=== PATIENT | male | born 1960 | race Caucasian/White ===

== ENCOUNTER 2022-10-23 10:54 | Inpatient (IN) | payer BC ==
[2022-10-23 11:04] VITALS: BMI 22.9
[2022-10-23] MEDS ORDERED: ACETAMINOPHEN 325 MG TABLET (FP) PO ONE (12:46)
[2022-10-23] MEDS ORDERED: ACETAMINOPHEN 325 MG TABLET (FP) ONE (12:51)
[2022-10-23 13:27] LABS: HEMATOCRIT 40.2 % (35.4-49); HEMOGLOBIN 14.3 GM/dL (11.7-16.9); LYMPH % 20.9 % (8-40); MCH 30.1 pg (25.7-33.7); MCHC 35.7 g/dl (32.0-35.9); MEAN CELL VOLUME 84.3 fl (80-96); MEAN PLT VOLUME 7.9 fl (7.5-11.1); MONO % 5.6 % (3.8-10.2); NEUT % 70.5 % (42.8-82.8); PLATELET COUNT 463 10^3/uL (134-434); RBC 4.77 M/mm3 (4.00-5.60); RDW 12.3 % (11.9-15.9); WHITE BLOOD COUNT 7.5 K/mm3 (4.0-10.0)
[2022-10-23 13:45] LABS: POTASSIUM 4.2 mmol/L (3.5-5.1)
[2022-10-23 13:46] LABS: BLOOD UREA NITROGEN 17.4 mg/dL (7-18); CALCIUM 9.3 mg/dL (8.5-10.1)
[2022-10-23 13:47] LABS: ALBUMIN 3.3 g/dl (3.4-5.0)
[2022-10-23 13:50] LABS: CREATININE 0.9 mg/dL (0.55-1.3)
[2022-10-23 13:51] LABS: TOT PROT 6.9 g/dl (6.4-8.2)
[2022-10-23 13:52] LABS: BILIRUBIN,TOTAL 0.7 mg/dL (0.2-1)
[2022-10-23] MEDS ORDERED: ASPIRIN 81 MG CHEWABLE TABLETS PO ONE (14:01)
[2022-10-23] MEDS ORDERED: ASPIRIN 81 MG CHEWABLE TABLETS ONE (14:10)
[2022-10-23] MEDS ORDERED: CEFTRIAXONE 1 GM in DEXTROSE 5%-WATER - 50 ML IVPB ONE (17:33)
[2022-10-23] MEDS ORDERED: AZITHROMYCIN IVPB 500 MG in DEXTROSE 5%-WATER - 250 ML IVPB ONE (17:33)
[2022-10-23] MEDS ORDERED: CEFTRIAXONE 1 GM/50 ML BAG ONE (18:44)
[2022-10-23] MEDS ORDERED: AZITHROMYCIN IVPB 500 MG/250 ML BAG IVPB ONE (18:44)
[2022-10-23 18:47] LABS: N-TERMINAL BNP 3085.4 pg/ml (5-125)
[2022-10-23] MEDS ORDERED: ENOXAPARIN NA (PORCINE) 60 MG/0.6 ML DISP.SYRIN SQ ONE (19:34)
[2022-10-23] MEDS: ENOXAPARIN NA (PORCINE) 60 MG/0.6 ML DISP.SYRIN SQ SCH (19:37)
[2022-10-23] MEDS: DOXYCYCLINE INJECTION 100 MG in DEXTROSE 5%-WATER 100 ML IVPB SCH (21:58)
[2022-10-23] MEDS ORDERED: HEPARIN NA (PORCINE) 5,000 UNITS/ML 1ML VIAL SQ SCH (22:00)
[2022-10-24] MEDS: ENOXAPARIN NA (PORCINE) 60 MG/0.6 ML DISP.SYRIN SQ SCH ×2 (06:24→06:27)
[2022-10-24] MEDS: INSULIN SLIDING SCALE (NOVOLOG) 1 VIAL SQ SCH ×4 (06:24→16:36)
[2022-10-24 08:02] LABS: EOS % 2.2 % (0-4.5); HEMATOCRIT 35.4 % (35.4-49); HEMOGLOBIN 12.6 GM/dL (11.7-16.9); LYMPH % 21.5 % (8-40); MCH 29.8 pg (25.7-33.7); MCHC 35.6 g/dl (32.0-35.9); MEAN CELL VOLUME 83.6 fl (80-96); MEAN PLT VOLUME 8.1 fl (7.5-11.1); NEUT % 69.3 % (42.8-82.8); PLATELET COUNT 392 10^3/uL (134-434); RBC 4.24 M/mm3 (4.00-5.60); RDW 12.4 % (11.9-15.9); WHITE BLOOD COUNT 6.2 K/mm3 (4.0-10.0)
[2022-10-24 08:23] LABS: POTASSIUM 3.6 mmol/L (3.5-5.1)
[2022-10-24 08:24] LABS: CALCIUM 8.3 mg/dL (8.5-10.1)
[2022-10-24 08:25] LABS: BLOOD UREA NITROGEN 15.4 mg/dL (7-18)
[2022-10-24 08:28] LABS: CREATININE 0.8 mg/dL (0.55-1.3)
[2022-10-24] MEDS ORDERED: CEFTRIAXONE 1 GM in DEXTROSE 5%-WATER - 50 ML IVPB SCH (10:00)
[2022-10-24] MEDS: DOXYCYCLINE INJECTION 100 MG in DEXTROSE 5%-WATER 100 ML IVPB SCH (10:06)
[2022-10-24] MEDS: ASPIRIN COATED 81 MG TABLET.EC PO SCH (10:06)
[2022-10-24] MEDS: ENOXAPARIN NA (PORCINE) 80 MG/0.8 ML DISP.SYRIN SQ SCH ×2 (14:51→23:17)
[2022-10-24] MEDS: CLOPIDOGREL BISULFATE 75 MG TABLET (FP) PO SCH (14:51)
[2022-10-24] MEDS ORDERED: VANCOMYCIN/WATER 1250 MG 1,250 MG/250 ML BAG IVPB SCH (15:00)
[2022-10-24] MEDS: PIPERACILLIN/TAZOB 3.375 GM 3.375 GM in DEXTROSE 5%-WATER - 50 ML IVPB SCH (17:38)
[2022-10-24] MEDS ORDERED: PIPERACILLIN/TAZOBACTAM 3.375 GM VIAL IVPB ONE (17:39)
[2022-10-24] MEDS ORDERED: ACETAMINOPHEN 325 MG TABLET (FP) PO ONE (20:39)
[2022-10-24] MEDS: ATORVASTATIN CA 80 MG TABLET (FP) PO SCH (21:06)
[2022-10-24] MEDS ORDERED: ATORVASTATIN CA 40 MG TABLET (FP) PO SCH (22:00)
[2022-10-25] MEDS: PIPERACILLIN/TAZOB 3.375 GM 3.375 GM in DEXTROSE 5%-WATER - 50 ML IVPB SCH ×3 (01:43→17:10)
[2022-10-25] MEDS: INSULIN SLIDING SCALE (NOVOLOG) 1 VIAL SQ SCH ×3 (06:35→16:58)
[2022-10-25 07:29] LABS: BASO % 1.1 % (0-2.0); EOS % 2.2 % (0-4.5); HEMATOCRIT 35.3 % (35.4-49); HEMOGLOBIN 12.6 GM/dL (11.7-16.9); LYMPH % 18.6 % (8-40); MCH 29.6 pg (25.7-33.7); MCHC 35.7 g/dl (32.0-35.9); MEAN CELL VOLUME 82.9 fl (80-96); MEAN PLT VOLUME 7.8 fl (7.5-11.1); MONO % 5.9 % (3.8-10.2); NEUT % 72.2 % (42.8-82.8); PLATELET COUNT 394 10^3/uL (134-434); RBC 4.26 M/mm3 (4.00-5.60); RDW 12.6 % (11.9-15.9); WHITE BLOOD COUNT 6.4 K/mm3 (4.0-10.0)
[2022-10-25 07:41] LABS: POTASSIUM 3.8 mmol/L (3.5-5.1)
[2022-10-25 07:47] LABS: ALBUMIN 2.6 g/dl (3.4-5.0)
[2022-10-25 07:48] LABS: BLOOD UREA NITROGEN 13.4 mg/dL (7-18); CALCIUM 8.5 mg/dL (8.5-10.1); MAGNESIUM 1.9 mg/dL (1.8-2.4)
[2022-10-25 07:51] LABS: BILIRUBIN,TOTAL 0.7 mg/dL (0.2-1); CREATININE 0.8 mg/dL (0.55-1.3); PHOSPHOROUS 3.2 mg/dL (2.5-4.9)
[2022-10-25 07:52] LABS: TOT PROT 5.7 g/dl (6.4-8.2)
[2022-10-25] MEDS: ASPIRIN COATED 81 MG TABLET.EC PO SCH (09:46)
[2022-10-25] MEDS: CLOPIDOGREL BISULFATE 75 MG TABLET (FP) PO SCH (09:46)
[2022-10-25] MEDS: ENOXAPARIN NA (PORCINE) 80 MG/0.8 ML DISP.SYRIN SQ SCH ×2 (09:47→22:15)
[2022-10-25] MEDS: LISINOPRIL 5 MG TABLET PO SCH (14:53)
[2022-10-25] MEDS: ATORVASTATIN CA 80 MG TABLET (FP) PO SCH (22:15)
[2022-10-26] MEDS: PIPERACILLIN/TAZOB 3.375 GM 3.375 GM in DEXTROSE 5%-WATER - 50 ML IVPB SCH ×3 (01:22→17:05)
[2022-10-26] MEDS: INSULIN SLIDING SCALE (NOVOLOG) 1 VIAL SQ SCH ×3 (06:20→17:04)
[2022-10-26 06:54] LABS: BASO % 1.1 % (0-2.0); EOS % 1.6 % (0-4.5); HEMATOCRIT 34.1 % (35.4-49); HEMOGLOBIN 12.4 GM/dL (11.7-16.9); LYMPH % 19.4 % (8-40); MCH 30.1 pg (25.7-33.7); MCHC 36.4 g/dl (32.0-35.9); MEAN CELL VOLUME 82.9 fl (80-96); MEAN PLT VOLUME 7.4 fl (7.5-11.1); MONO % 5.1 % (3.8-10.2); NEUT % 72.8 % (42.8-82.8); PLATELET COUNT 402 10^3/uL (134-434); RBC 4.11 M/mm3 (4.00-5.60); RDW 12.3 % (11.9-15.9); WHITE BLOOD COUNT 7.6 K/mm3 (4.0-10.0)
[2022-10-26 07:11] LABS: BLOOD UREA NITROGEN 11.2 mg/dL (7-18); CALCIUM 8.4 mg/dL (8.5-10.1)
[2022-10-26 07:12] LABS: ALBUMIN 2.8 g/dl (3.4-5.0); MAGNESIUM 2.1 mg/dL (1.8-2.4)
[2022-10-26 07:14] LABS: CREATININE 0.9 mg/dL (0.55-1.3); PHOSPHOROUS 3.6 mg/dL (2.5-4.9)
[2022-10-26 07:16] LABS: BILIRUBIN,TOTAL 0.7 mg/dL (0.2-1); TOT PROT 5.8 g/dl (6.4-8.2)
[2022-10-26] MEDS: CLOPIDOGREL BISULFATE 75 MG TABLET (FP) PO SCH (09:33)
[2022-10-26] MEDS: LISINOPRIL 5 MG TABLET PO SCH (09:33)
[2022-10-26] MEDS: ASPIRIN COATED 81 MG TABLET.EC PO SCH (09:33)
[2022-10-26] MEDS: ENOXAPARIN NA (PORCINE) 80 MG/0.8 ML DISP.SYRIN SQ SCH (09:34)
[2022-10-26] MEDS ORDERED: INSULIN (NOVOLOG) ASPART 100 UNITS/ML 10ML VIAL ONE (16:57)
[2022-10-26] MEDS: ATORVASTATIN CA 80 MG TABLET (FP) PO SCH (21:44)
[2022-10-27] MEDS: PIPERACILLIN/TAZOB 3.375 GM 3.375 GM in DEXTROSE 5%-WATER - 50 ML IVPB SCH ×3 (03:27→17:50)
[2022-10-27] MEDS: INSULIN SLIDING SCALE (NOVOLOG) 1 VIAL SQ SCH ×3 (06:26→16:34)
[2022-10-27 07:34] LABS: BASO % 1.3 % (0-2.0); EOS % 2.1 % (0-4.5); HEMATOCRIT 32.5 % (35.4-49); HEMOGLOBIN 11.8 GM/dL (11.7-16.9); LYMPH % 20.7 % (8-40); MCHC 36.3 g/dl (32.0-35.9); MEAN CELL VOLUME 82.5 fl (80-96); MEAN PLT VOLUME 7.8 fl (7.5-11.1); NEUT % 68.9 % (42.8-82.8); PLATELET COUNT 363 10^3/uL (134-434); RBC 3.94 M/mm3 (4.00-5.60); RDW 12.4 % (11.9-15.9); WHITE BLOOD COUNT 6.8 K/mm3 (4.0-10.0)
[2022-10-27 08:01] LABS: POTASSIUM 3.7 mmol/L (3.5-5.1)
[2022-10-27 08:06] LABS: ALBUMIN 2.6 g/dl (3.4-5.0); BLOOD UREA NITROGEN 10.8 mg/dL (7-18); CALCIUM 8.3 mg/dL (8.5-10.1); MAGNESIUM 1.9 mg/dL (1.8-2.4)
[2022-10-27 08:09] LABS: PHOSPHOROUS 3.4 mg/dL (2.5-4.9)
[2022-10-27 08:10] LABS: CREATININE 0.8 mg/dL (0.55-1.3)
[2022-10-27 08:11] LABS: BILIRUBIN,TOTAL 0.8 mg/dL (0.2-1); TOT PROT 5.6 g/dl (6.4-8.2)
[2022-10-27] MEDS: ASPIRIN COATED 81 MG TABLET.EC PO SCH (09:22)
[2022-10-27] MEDS: CLOPIDOGREL BISULFATE 75 MG TABLET (FP) PO SCH (09:22)
[2022-10-27] MEDS: LISINOPRIL 5 MG TABLET PO SCH (09:22)
[2022-10-27] MEDS: ENOXAPARIN NA (PORCINE) 80 MG/0.8 ML DISP.SYRIN SQ SCH ×2 (09:24→21:21)
[2022-10-27] MEDS: ATORVASTATIN CA 80 MG TABLET (FP) PO SCH (21:21)
[2022-10-28] MEDS: PIPERACILLIN/TAZOB 3.375 GM 3.375 GM in DEXTROSE 5%-WATER - 50 ML IVPB SCH ×2 (02:44→09:10)
[2022-10-28] MEDS: INSULIN SLIDING SCALE (NOVOLOG) 1 VIAL SQ SCH ×2 (05:59→11:46)
[2022-10-28] MEDS: CLOPIDOGREL BISULFATE 75 MG TABLET (FP) PO SCH (09:08)
[2022-10-28] MEDS: LISINOPRIL 5 MG TABLET PO SCH (09:08)
[2022-10-28] MEDS: ASPIRIN COATED 81 MG TABLET.EC PO SCH (09:08)
[2022-10-28] MEDS: ENOXAPARIN NA (PORCINE) 80 MG/0.8 ML DISP.SYRIN SQ SCH (09:09)
[2022-10-28 09:14] VITALS: RESP 20
[2022-10-28] MEDS ORDERED: LISINOPRIL 10 MG TABLET PO SCH (11:39)
[2022-10-28] MEDS ORDERED: LISINOPRIL 5 MG TABLET PO ONE (11:39)
[2022-10-28] MEDS ORDERED: INSULIN (NOVOLOG) ASPART 100 UNITS/ML 10ML VIAL ONE (11:45)
[2022-10-28 14:09] VITALS: BP 134/87; PULSE 92; TEMP 98.4
== END 2022-10-28 15:00 | disposition home or self-care (01) | DRG 194 ==
LOC: JER 10:54 → JERFT 10:54 → UNDOADMOB 17:51 → INTOOBSV 17:51 → JERBED 17:51 → J4W 20:15 → OBSVTOIN 10-24 13:39
PROVIDERS: ADMIT Internal Medicine; ATTEND Internal Medicine
DX: J18.9 Pneumonia, unspecified organism (principal); I24.8 Other forms of acute ischemic heart disease; J90 Pleural effusion, not elsewhere classified; R77.8 Other specified abnormalities of plasma proteins; F41.8 Other specified anxiety disorders; I11.0 Hypertensive heart disease with heart failure; I50.9 Heart failure, unspecified; E11.65 Type 2 diabetes mellitus with hyperglycemia; I25.10 Atherosclerotic heart disease of native coronary artery without angina pectoris
CPT/HCPCS: 0241U-QW; 36415; 71045-TC-FY; 71046-TC-FY; 71275-TC; 78452-TC; 80048; 80053; 80061; 82550; 82962; 83036; 83735; 83880; 84100; 84484; 85025; 85379; 86850; 86900; 86901; 87040; 87086; 93005; 93010; 93017; 93306-TC; 99291; A9502; G0378; Q9967